=== PATIENT | female | born 1970 ===

== ENCOUNTER 2016-10-26 09:10 | Day surgery (SDC) | payer OTHER ==
[2016-10-26] MEDS ORDERED: MIDAZOLAM 2 MG/2 ML VIAL ONE (10:58)
[2016-10-26] MEDS ORDERED: LIDOCAINE 2% 5 ML SDV ONE (10:59)
[2016-10-26] MEDS ORDERED: PROPOFOL/EMULSION 500 MG/50 ML BOTTLE IV ONE (10:59)
--- NOTE | 2016-10-26 12:05 | GPN ---
[f rep st] PROCEDURE NOTE PREPROCEDURE DIAGNOSES: 1. Diffuse abdominal pain. 2. Diarrhea. 3. Constipation. POSTPROCEDURE DIAGNOSES: 1. Normal upper endoscopy. 2. Mild terminal ileitis. 3. Normal colonoscopy. PROCEDURE: Esophagogastroduodenoscopy with biopsy, colonoscopy with biopsy. MEDICATIONS: Monitored anesthesia care. INDICATION: The patient is a 46-year-old female, who is a patient who was seen in [facility] 2017 for urgency of bowel movements, diarrhea, constipation and diffuse abdominal pain. She is here for an EGD and colonoscopy. The risks and benefits of the procedure were discussed with the prasanna villalobos. Consent obtained. Risks include but are not limited to bleeding, perforation, sedation. Th e patient is ASA class 2. PROCEDURE: The end-viewing endoscope was inserted into the esophagus, into stomach and second porti on of the duodenum. The esophagus is normal. There is no evidence of Ramsey's, varices or esophag itis. The Z-line is located at 40 cm from the incisors. Her stomach is normal. Biopsies were take n using cold biopsy forceps to evaluate for Helicobacter pylori. The duodenum was normal to the sec ond portion. Biopsies were taken with cold biopsy forceps to evaluate for celiac disease. The ede ent is repositioned and the colonoscope was advanced into the terminal ileum. There are patchy foca l aphthous ulcerations in the terminal ileum. Biopsies were taken using cold biopsy forceps. The a ppearance is nonspecific, and could be prep-related. Biopsies were taken to exclude chronic colitis . The colon appeared normal. Biopsies were taken throughout the colon with cold biopsy forceps to evaluate for microscopic colitis. Retroflexed views in the rectum were normal. IMPRESSION: 1. Normal upper endoscopy, status post biopsies of the stomach and duodenum. 2. Mild terminal ileitis. This appearance is nonspecific, and could be acute or chronic-related. The ileitis is very mild. 3. Normal colonoscopy otherwise. RECOMMENDATIONS: 1. Advance diet as tolerated. 2. Discharge home with escort. 3. Followup the final pathology results. Results are available within 10 days. 4. Followup with in clinic as previously scheduled. 5. Repeat colonoscopy in 10 years for screening purposes. Thank you for allowing me to participate in the care of this patient. Please do not hesitate to doug caceres if questions. /[id number]/MODL
== END 2016-10-26 13:00 | disposition home or self-care (01) ==
LOC: FSGY 09:10
PROVIDERS: ATTEND Internal Medicine Gastroenterology
PROC: 0DB68ZX Excision of Stomach, Via Natural or Artificial Opening Endoscopic, Diagnostic (ICD-10-PCS; principal; 2016-10-26 10:30)
PROC: 0DJ08ZZ Inspection of Upper Intestinal Tract, Via Natural or Artificial Opening Endoscopic (ICD-10-PCS; principal; 2016-10-26 10:30)
PROC: 0DJD8ZZ Inspection of Lower Intestinal Tract, Via Natural or Artificial Opening Endoscopic (ICD-10-PCS; principal; 2016-10-26 10:30)
PROC: 0DBB8ZX Excision of Ileum, Via Natural or Artificial Opening Endoscopic, Diagnostic (ICD-10-PCS; principal; 2016-10-26 10:30)
PROC: 0DB98ZX Excision of Duodenum, Via Natural or Artificial Opening Endoscopic, Diagnostic (ICD-10-PCS; principal; 2016-10-26 10:30)
DX: R10.84 Generalized abdominal pain (principal); R19.7 Diarrhea, unspecified; K52.9 Noninfective gastroenteritis and colitis, unspecified; F41.9 Anxiety disorder, unspecified
CPT/HCPCS: J2250; J2704